=== PATIENT | male | born 2005 | race Caucasian/White ===

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

== ENCOUNTER 2023-03-23 02:15 | Emergency (ER) | payer MEDICAID, OTHER ==
[2023-03-23] MEDS ORDERED: Ibuprofen 200 MG TAB ONE (04:17)
== END 2023-03-23 04:51 | disposition home or self-care (01) ==
LOC: ERS 02:15
DX: S62.304A Unspecified fracture of fourth metacarpal bone, right hand, initial encounter for closed fracture (principal); F17.290 Nicotine dependence, other tobacco product, uncomplicated; W22.8XXA Striking against or struck by other objects, initial encounter
CPT/HCPCS: 29125

== ENCOUNTER 2023-04-06 09:52 | Day surgery (SDC) | payer OTHER ==
[2023-04-05 09:05] VITALS: BMI 20.5
[2023-04-06] MEDS ORDERED: Bupivacaine 0.25% HCL 30 ML VIAL ONE (10:16)
[2023-04-06] MEDS ORDERED: Lidocaine 1% (PF) 30 ML VIAL ONE (10:16)
[2023-04-06] MEDS ORDERED: CEFAZOLIN 2 GM VIAL ONE (11:44)
[2023-04-06] MEDS ORDERED: Sodium Chloride 0.9% 100 ML ONE (11:44)
[2023-04-06] MEDS ORDERED: fentaNYL 50 mcg/mL 1 mL Vial ONE ×2 (12:15→13:15)
[2023-04-06] MEDS ORDERED: Ondansetron PF 4 MG/2 ML Vial ONE (12:17)
[2023-04-06] MEDS ORDERED: Ketorolac Tromethamine 30 MG/ML VIAL ONE (12:17)
[2023-04-06] MEDS ORDERED: PROPOFOL 200 MG/20 ML VIAL ONE (12:17)
[2023-04-06] MEDS ORDERED: Lidocaine 1% PF 5 ML VIAL ONE (12:17)
== END 2023-04-06 14:45 | disposition home or self-care (01) ==
LOC: SDC 09:52
PROVIDERS: ATTEND Surgery Surgery of the Hand
PROC: 0PSP34Z Reposition Right Metacarpal with Internal Fixation Device, Percutaneous Approach (ICD-10-PCS; principal; 2023-04-06)
DX: S62.324A Displaced fracture of shaft of fourth metacarpal bone, right hand, initial encounter for closed fracture (principal); S62.316A Displaced fracture of base of fifth metacarpal bone, right hand, initial encounter for closed fracture; X58.XXXA Exposure to other specified factors, initial encounter
CPT/HCPCS: J1885; J2001; J2405; J2704; J3010; J3490; S0020